=== PATIENT | female | born 1985 | race Caucasian/White ===

== ENCOUNTER → 2016-06-09 | Outpatient (CLI) | payer OTHER ==
--- NOTE | 2016-06-13 07:11 | MM ---
Reason for exam: screening (asymptomatic). Baseline mammogram. History: Patient is nulliparous. Family history of breast cancer in maternal grandmother at age 40. Physical Findings: Nurse did not find any significant physical abnormalities on exam. MG Screening Mammo w CAD Bilateral CC and MLO view(s) were taken. The breast tissue is heterogeneously dense. This may lower the sensitivity of mammography. There is no discrete abnormality. ASSESSMENT: Negative, BI-RAD 1 RECOMMENDATION: Routine screening mammogram of both breasts at age 42.
== END ==
LOC: RADMAMWWP 13:05
PROVIDERS: ATTEND Internal Medicine
DX: Z12.31 Encounter for screening mammogram for malignant neoplasm of breast (principal); Z80.3 Family history of malignant neoplasm of breast

== ENCOUNTER → 2017-06-26 | Outpatient (CLI) | payer OTHER ==
--- NOTE | 2017-06-26 21:37 | MR ---
EXAMINATION TYPE: MR brain wo con DATE OF EXAM: 06/26/2017 COMPARISON: NONE HISTORY: Cerebral cysts CONTRAST: Performed utilizing 0 mL intravenous Gadavist gadolinium contrast. TECHNIQUE: Multiplanar, multiecho imaging on a 3.0 Kenyatta magnet is performed through the brain. Stud y is performed within 24 hours of arrival to the hospital. The craniovertebral junction is normal. The pituitary is normal. Diffusion-weighted imaging is performed. No abnormal hyperintensity is present to suggest an acute i ntracranial infarct or acute ischemic change. There is an extension of the lateral ventricle into the left parietal centrum semiovale. This has smo oth borders and in the coronal plane has wide opening into the lateral ventricle compatible with vent ricular dilatation. Localized cysts not clearly identified based on these images Ventricles and sulci are otherwise appropriate for the patient age. There is a small focal area of hyperintensity within the left frontal lobe subcortical white matter n ear the skull base. This is nonspecific but could be related to some microvascular ischemic change or vasculitis. Gliosis from migraine headaches could be considered. This is not out of proportion to th e patient age. IMPRESSIONS: 1. 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 This appears more of a diverticulum. However, contrast MRI is recommended to evaluate mor e unusual etiologies which potentially could include cystic neoplasm and arachnoid cyst.
== END | disposition home or self-care (01) ==
LOC: RADMRIMAIN 16:27
PROVIDERS: ATTEND Psychiatry & Neurology Neurology
DX: R93.0 Abnormal findings on diagnostic imaging of skull and head, not elsewhere classified (principal); G93.0 Cerebral cysts
CPT/HCPCS: 70551

== ENCOUNTER 2017-07-08 09:15 | Emergency (ER) | payer OTHER ==
[2017-07-08 09:19] VITALS: RESP 18
[2017-07-08] MEDS ORDERED: ONDANSETRON 4 MG/2 ML VIAL IVP STA (10:10)
[2017-07-08] MEDS ORDERED: SODIUM CHLORIDE 0.9% 1,000 ML IV STA ×2 (10:10)
[2017-07-08] MEDS ORDERED: DICYCLOMINE 10 MG/ML 2 ML AMP IM STA (10:11)
--- NOTE | 2017-07-08 10:32 | ED ---
General Adult HPI - General Chief complaint: Nausea/Vomiting/Diarrhea Stated complaint: Vomiting Time Seen by Provider: 07/08/17 10:05 Source: patient, RN notes reviewed, old records reviewed Mode of arrival: ambulatory Limitations: no limitations - History of Present Illness Initial comments: Patient 32-year-old female who presents emergency room today with a chief complaint of symptoms of nausea vomiting diarrhea that began late last night. She does admit that she has a history of similar symptoms. States that she's been feeling well this past week. States she did eat a cheeseburger and lots of food yesterday. States began feeling nauseous beginning late last night. States she's had several bouts. Has not seen any blood in the emesis or stool. She is having loose diarrhea. Patient denies any other complaints. Patient denies any recent fever, chills, shortness of breath, chest pain, back pain, dysuria or hematuria, constipation, headaches or visual changes, or any other complaints. - Related Data Home Medications Medication Instructions Recorded Confirmed Cetirizine HCl [Zyrtec] 10 mg PO DAILY 02/16/15 07/08/17 Norethindrone-Ethinyl Estrad 1 tab PO DAILY 08/12/15 07/08/17 [Alyacen 1-35-28 Tablet] Lysine [l-Lysine] 500 mg PO DAILY 04/11/17 07/08/17 Pedi Multivit No.25/Folic Acid 300 mcg PO DAILY 04/11/17 07/08/17 [Flintstones Multivit Chew Tab] Probiotic Gummies 2 tab PO DAILY 04/11/17 07/08/17 ALPRAZolam [Xanax] 0.25 mg PO DAILY PRN 07/08/17 07/08/17 Previous Rx's Medication Instructions Recorded Ondansetron Odt [Zofran ODT] 4 mg PO Q8HR PRN #20 tab 04/11/17 Dicyclomine [Bentyl] 20 mg PO QID #20 tablet 07/08/17 Ondansetron Odt [Zofran ODT] 4 mg PO Q8HR PRN #20 tab 07/08/17 Allergies Allergy/AdvReac Type Severity Reaction Status Date / Time metoclopramide HCl AdvReac Intermediate Unknown Verified 07/08/17 10:05 [From Reglan] Review of Systems ROS Statement: Those systems with pertinent positive or pertinent negative responses have been documented in the HPI. ROS Other: All systems not noted in ROS Statement are negative. 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 History of Any Multi-Drug Resistant Organisms: None Reported Past Surgical History: Appendectomy Additional Past Surgical History / Comment(s): OVARIAN CYST SURGERY Past Anesthesia/Blood Transfusion Reactions: No Reported Reaction Past Psychological History: No Psychological Hx Reported Smoking Status: Never smoker Past Alcohol Use History: Occasional Past Drug Use History: None Reported - Past Family History Mother Family Medical History: No Reported History Father Family Medical History: No Reported History General Exam - General Exam Comments Initial Comments: General: The patient is awake and alert, in no distress, and does not appear acutely ill. Eye: Pupils are equal, round and reactive to light, extra-ocular movements are intact. No nystagmus. There is normal conjunctiva bilaterally. No signs of icterus. Ears, nose, mouth and throat: There are moist mucous membranes and no oral lesions. Neck: The neck is supple, there is no tenderness or JVD. Cardiovascular: There is a regular rate and rhythm. No murmur, rub or gallop is appreciated. Respiratory: Lungs are clear to auscultation, respirations are non-labored, breath sounds are equal. No wheezes, stridor, rales, or rhonchi. Gastrointestinal: Abdomen soft on palpation per patient does have tenderness minimal to the left and right lower quadrant. No rebound tenderness. No guarding. No CVA tenderness. Musculoskeletal: Normal ROM, no tenderness. Strength 5/5. Sensation intact. Pulses equal bilaterally 2+. Neurological: A&O x 3. CN II-XII intact, There are no obvious motor or sensory deficits. Coordination appears grossly intact. Speech is normal. Skin: Skin is warm and dry and no rashes or lesions are noted. Psychiatric: Cooperative, appropriate mood & affect, normal judgment. Limitations: no limitations Course Vital Signs 07/08/17 09:16 Pulse Rate 120 H Respiratory 18 Rate Blood Pressure 123/68 O2 Sat by Pulse 97 Oximetry Medical Decision Making - Medical Decision Making Case discussed in detail with attending physician Dr. Grimaldo. Patient reexamined at this time shows no signs of distress resting comfortably. Patient states she is feeling better here in the emergency room. Abdomen soft nontender. Labs been reviewed does show 20,000 white count. Patient was seen here March for same complaint. She did have elevated white count had a CAT scan obtained which showed colitis. Patient states she's follow-up the family doctor is also seeing GI has had both upper and lower scope performed. She states everything was okay. She states she is also seeing hematology for her elevated white cell count. Options were discussed with patient about a CT. At this time she states that the symptoms are similar to what she is expressing the past there is nothing new or different. She states feels comfortable being discharged home to follow-up the family doctor tomorrow. Patient will be given medications of [place] for her symptoms. She is advised return if any new symptoms or increase worsen his symptoms. - Lab Data Result diagrams: 07/08/17 11:14 07/08/17 11:14 Lab Results 07/08/17 07/08/17 07/08/17 Range/Units 10:33 10:33 11:14 WBC (3.8-10.6) k/uL RBC (3.80-5.40) m/uL Hgb (11.4-16.0) gm/dL Hct (34.0-46.0) % MCV (80.0-100.0) fL MCH (25.0-35.0) pg MCHC (31.0-37.0) g/dL RDW (11.5-15.5) % Plt Count (150-450) k/uL Neutrophils % (Manual) % Band Neutrophils % % Lymphocytes % (Manual) % Monocytes % (Manual) % Eosinophils % (Manual) % Neutrophils # (Manual) (1.3-7.7) k/uL Lymphocytes # (Manual) (1.0-4.8) k/uL Monocytes # (Manual) (0-1.0) k/uL Eosinophils # (Manual) (0-0.7) k/uL Nucleated RBCs (0-0) /100 WBC Polychromasia Sodium 143 (137-145) mmol/L Potassium 4.8 (3.5-5.1) mmol/L Chloride 104 (98-107) mmol/L Carbon Dioxide 19 L (22-30) mmol/L Anion Gap 20 mmol/L BUN 18 H (7-17) mg/dL Creatinine 0.97 (0.52-1.04) mg/dL Est GFR (CKD-EPI)AfAm >90 (>60 ml/min/1.73 sqM) Est GFR (CKD-EPI)NonAf 79 (>60 ml/min/1.73 sqM) Glucose 109 H (74-99) mg/dL Calcium 11.1 H (8.4-10.2) mg/dL Total Bilirubin 0.6 (0.2-1.3) mg/dL AST 34 (14-36) U/L ALT 30 (9-52) U/L Alkaline Phosphatase 65 (38-126) U/L Total Protein 9.2 H (6.3-8.2) g/dL Albumin 5.3 H (3.5-5.0) g/dL Amylase 70 (30-110) U/L Lipase 55 (23-300) U/L Urine Color Yellow Urine Appearance Cloudy H (Clear) Urine pH 5.5 (5.0-8.0) Ur Specific [place] 1.020 (1.001-1.035) Urine Protein 1+ H (Negative) Urine Glucose (UA) Negative (Negative) Urine Ketones Negative (Negative) Urine Blood Trace H (Negative) Urine Nitrite Negative (Negative) Urine Bilirubin Negative (Negative) Urine Urobilinogen <2.0 (<2.0) mg/dL Ur Leukocyte Esterase Negative (Negative) Urine RBC 1 (0-5) /hpf Urine WBC 5 (0-5) /hpf Ur Squamous Epith Cells 4 (0-4) /hpf Urine Bacteria Rare H (None) /hpf Hyaline Casts 70 H (0-2) /lpf Urine Mucus Many H (None) /hpf Urine HCG, Qual Not Detected (Not Detectd) 07/08/17 Range/Units 11:14 WBC 20.6 H (3.8-10.6) k/uL RBC 5.74 H (3.80-5.40) m/uL Hgb 17.0 H (11.4-16.0) gm/dL Hct 49.3 H (34.0-46.0) % MCV 85.8 (80.0-100.0) fL MCH 29.6 (25.0-35.0) pg MCHC 34.5 (31.0-37.0) g/dL RDW 12.4 (11.5-15.5) % Plt Count 426 (150-450) k/uL Neutrophils % (Manual) 84 % Band Neutrophils % 2 % Lymphocytes % (Manual) 6 % Monocytes % (Manual) 6 % Eosinophils % (Manual) 2 % Neutrophils # (Manual) 17.70 H (1.3-7.7) k/uL Lymphocytes # (Manual) 1.24 (1.0-4.8) k/uL Monocytes # (Manual) 1.24 H (0-1.0) k/uL Eosinophils # (Manual) 0.41 (0-0.7) k/uL Nucleated RBCs 0 (0-0) /100 WBC Polychromasia Present Sodium (137-145) mmol/L Potassium (3.5-5.1) mmol/L Chloride (98-107) mmol/L Carbon Dioxide (22-30) mmol/L Anion Gap mmol/L BUN (7-17) mg/dL Creatinine (0.52-1.04) mg/dL Est GFR (CKD-EPI)AfAm (>60 ml/min/1.73 sqM) Est GFR (CKD-EPI)NonAf (>60 ml/min/1.73 sqM) Glucose (74-99) mg/dL Calcium (8.4-10.2) mg/dL Total Bilirubin (0.2-1.3) mg/dL AST (14-36) U/L ALT (9-52) U/L Alkaline Phosphatase (38-126) U/L Total Protein (6.3-8.2) g/dL Albumin (3.5-5.0) g/dL Amylase (30-110) U/L Lipase (23-300) U/L Urine Color Urine Appearance (Clear) Urine pH (5.0-8.0) Ur Specific [place] (1.001-1.035) Urine Protein (Negative) Urine Glucose (UA) (Negative) Urine Ketones (Negative) Urine Blood (Negative) Urine Nitrite (Negative) Urine Bilirubin (Negative) Urine Urobilinogen (<2.0) mg/dL Ur Leukocyte Esterase (Negative) Urine RBC (0-5) /hpf Urine WBC (0-5) /hpf Ur Squamous Epith Cells (0-4) /hpf Urine Bacteria (None) /hpf Hyaline Casts (0-2) /lpf Urine Mucus (None) /hpf Urine HCG, Qual (Not Detectd) Disposition Clinical Impression: Abdominal pain Disposition: HOME SELF-CARE Condition: Good Instructions: Abdominal Pain (ED) Additional Instructions: Please use medication as discussed. Please follow-up with family doctor in one to 2 days. Please return to emergency room if the symptoms increase or worsen or for any other concerns. Prescriptions: Dicyclomine [Bentyl] 20 mg PO QID #20 tablet Ondansetron Odt [Zofran ODT] 4 mg PO Q8HR PRN #20 tab PRN Reason: Nausea Referrals: Carina Keita MD [Primary Care Provider] - 1-2 days Time of Disposition: 13:44
[2017-07-08 11:36] LABS: ALT 30 U/L (9-52); AST 34 U/L (14-36); Albumin 5.3 g/dL (3.5-5.0); Alkaline Phosphatase 65 U/L (38-126); Amylase 70 U/L (30-110); Anion Gap 20 mmol/L; Blood Urea Nitrogen 18 mg/dL (7-17); Calcium 11.1 mg/dL (8.4-10.2); Carbon Dioxide 19 mmol/L (22-30); Chloride 104 mmol/L (98-107); Glucose 109 mg/dL (74-99); Lipase 55 U/L (23-300); Potassium 4.8 mmol/L (3.5-5.1); Sodium 143 mmol/L (137-145); Total Bilirubin 0.6 mg/dL (0.2-1.3); Total Protein 9.2 g/dL (6.3-8.2)
[2017-07-08 11:47] LABS: HCT 49.3 % (34.0-46.0); MCH 29.6 pg (25.0-35.0); MCHC 34.5 g/dL (31.0-37.0); MCV 85.8 fL (80.0-100.0); Mean Platelet Volume 6.5; Platelet Count 426 k/uL (150-450); RBC 5.74 m/uL (3.80-5.40); RDW 12.4 % (11.5-15.5); WBC 20.6 k/uL (3.8-10.6)
[2017-07-08 12:03] LABS: Band Neutrophils % 2 %; Eosinophils # (M) 0.41 k/uL (0-0.7); Lymphocytes # (M) 1.24 k/uL (1.0-4.8); Monocytes # (M) 1.24 k/uL (0-1.0); Neutrophils % (M) 84 %; Nucleated Red Blood Cells 0 /100 WBC (0-0); Polychromasia Present; Total Cells Counted 100
--- NOTE | 2017-07-08 12:15 | XR ---
EXAMINATION TYPE: XR KUB DATE OF EXAM: 07/08/2017 12:08 PM CLINICAL HISTORY: Nausea and vomiting with abdominal pain. TECHNIQUE: Single supine image of the abdomen is obtained. COMPARISON: 03/25/2015. FINDINGS: Scattered gas is seen in non-distended small bowel loops. Gas and fecal material is seen in non-distended colon. There is no abnormal calcification appreciated. The lung bases are clear and th e osseous structures are intact. Exam is limited for pneumoperitoneum given this supine view only IMPRESSION: Nonobstructive bowel gas pattern.
[2017-07-08 13:17] LABS: Appearance,Urine Cloudy (Clear); Bacteria,Urine Rare /hpf; Bilirubin,Urine Negative (Negative); Blood,Urine Trace (Negative); Color,Urine Yellow; Glucose,Urine (UA) Negative (Negative); Hyaline Casts,Urine 70 /lpf (0-2); Ketones,Urine Negative (Negative); Leukocyte Esterase,Urine Negative (Negative); Mucus,Urine Many /hpf; Nitrite,Urine Negative (Negative); PH, Urine 5.5 (5.0-8.0); Protein,Urine 1+ (Negative); RBC,Urine 1 /hpf (0-5); Squamous Epithelial Cell,Urine 4 /hpf (0-4); Urobilinogen,Urine <2.0 mg/dL (<2.0); WBC,Urine 5 /hpf (0-5)
[2017-07-08 13:55] VITALS: BP 112/62; PULSE 89; TEMP 97.5
== END 2017-07-08 13:55 | disposition home or self-care (01) ==
LOC: EC 09:15
DX: R10.9 Unspecified abdominal pain (principal); R11.2 Nausea with vomiting, unspecified; R19.7 Diarrhea, unspecified; Z90.49 Acquired absence of other specified parts of digestive tract; Z79.899 Other long term (current) drug therapy; Z88.8 Allergy status to other drugs, medicaments and biological substances
CPT/HCPCS: 36415; 80053; 82150; 83690; 85025; 81001; 81025; 74018; 99284; 96374; 96361 ×2; 96372; J0500; J2405

== ENCOUNTER 2017-10-04 11:24 | Emergency (ER) | payer OTHER ==
[2017-10-04] MEDS ORDERED: SODIUM CHLORIDE 0.9% 2,000 ML IV STA (12:23)
[2017-10-04] MEDS ORDERED: diphenhydrAMINE 50 MG/ML 1 ML VIAL IVP STA ×2 (12:23→13:55)
[2017-10-04] MEDS ORDERED: PROMETHAZINE INJ 25 MG in SODIUM CHLORIDE 0.9% 50 ML IVPB STA (12:24)
[2017-10-04 12:54] LABS: Basophils # (A) 0.1 k/uL (0-0.2); Basophils % (A) 0 %; Eosinophils # (A) 0.1 k/uL (0-0.7); Eosinophils % (A) 0 %; HCT 46.2 % (34.0-46.0); Lymphocytes # (A) 0.8 k/uL (1.0-4.8); Lymphocytes % (A) 4 %; MCH 30.6 pg (25.0-35.0); MCHC 34.6 g/dL (31.0-37.0); MCV 88.5 fL (80.0-100.0); Mean Platelet Volume 7.1; Monocytes # (A) 0.6 k/uL (0-1.0); Monocytes % (A) 3 %; Neutrophils # (A) 19.9 k/uL (1.3-7.7); Neutrophils % (A) 92 %; Platelet Count 440 k/uL (150-450); RBC 5.22 m/uL (3.80-5.40); RDW 13.5 % (11.5-15.5); WBC 21.6 k/uL (3.8-10.6)
[2017-10-04 13:05] LABS: ALT 32 U/L (9-52); AST 29 U/L (14-36); Albumin 5.2 g/dL (3.5-5.0); Alkaline Phosphatase 50 U/L (38-126); Amylase 54 U/L (30-110); Anion Gap 22 mmol/L; Blood Urea Nitrogen 17 mg/dL (7-17); Calcium 10.4 mg/dL (8.4-10.2); Carbon Dioxide 16 mmol/L (22-30); Chloride 104 mmol/L (98-107); Glucose 122 mg/dL (74-99); Lipase 19 U/L (23-300); Potassium 5.3 mmol/L (3.5-5.1); Sodium 142 mmol/L (137-145); Total Bilirubin 0.8 mg/dL (0.2-1.3); Total Protein 8.5 g/dL (6.3-8.2)
--- NOTE | 2017-10-04 13:16 | ED ---
Nausea/Vomiting/Diarrhea HPI - General Chief complaint: Nausea/Vomiting/Diarrhea Stated complaint: NVD Time Seen by Provider: 10/04/17 12:09 Source: patient, RN notes reviewed Mode of arrival: ambulatory Limitations: no limitations - History of Present Illness Initial comments: This is a 32-year-old female presents emergency Department with chief complaint of nausea vomiting diarrhea. Patient states his symptoms started this morning. Patient states that she has is ongoing cycle of symptoms. She states that he has been evaluated several times has seen GI has had complete workup with no answers. She states that she normally develops severe nausea vomiting diarrhea along with leukocytosis. She states is normally in the 20-30,000. Patient reports no fever no chills. Patient states that she tried Zofran at home along with Bentyl with no improvement. Patient denies any dysuria, hematuria, melena , hematochezia or hematemesis or coffee-ground emesis. - Related Data Home Medications Medication Instructions Recorded Confirmed Cetirizine HCl [Zyrtec] 10 mg PO DAILY 02/16/15 10/04/17 Norethindrone-Ethinyl Estrad 1 tab PO DAILY 08/12/15 10/04/17 [Alyacen 1-35-28 Tablet] Lysine [l-Lysine] 500 mg PO DAILY 04/11/17 10/04/17 Pedi Multivit No.25/Folic Acid 300 mcg PO DAILY 04/11/17 10/04/17 [Flintstones Multivit Chew Tab] Probiotic Gummies 2 tab PO DAILY 04/11/17 10/04/17 ALPRAZolam [Xanax] 0.125 mg PO DAILY PRN 07/08/17 10/04/17 valACYclovir [Valtrex] 500 mg PO DAILY 10/04/17 10/04/17 Previous Rx's Medication Instructions Recorded Dicyclomine [Bentyl] 20 mg PO QID #20 tablet 07/08/17 Ondansetron Odt [Zofran ODT] 4 mg PO Q8HR PRN #20 tab 07/08/17 Promethazine Suppository 25 mg RECTAL QID #20 supp 10/04/17 [Phenergan] Allergies Allergy/AdvReac Type Severity Reaction Status Date / Time metoclopramide HCl AdvReac Intermediate Unknown Verified 10/04/17 12:05 [From Reglan] Review of Systems ROS Statement: Those systems with pertinent positive or pertinent negative responses have been documented in the HPI. ROS Other: All systems not noted in ROS Statement are negative. 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 History of Any Multi-Drug Resistant Organisms: None Reported Past Surgical History: Appendectomy Additional Past Surgical History / Comment(s): OVARIAN CYST SURGERY Past Anesthesia/Blood Transfusion Reactions: No Reported Reaction Past Psychological History: No Psychological Hx Reported Smoking Status: Never smoker Past Alcohol Use History: Occasional Past Drug Use History: None Reported - Past Family History Mother Family Medical History: No Reported History Father Family Medical History: No Reported History General Exam Limitations: no limitations General appearance: alert, in no apparent distress Head exam: Present: atraumatic, normocephalic, normal inspection ENT exam: Present: normal exam, normal oropharynx, mucous membranes moist Neck exam: Present: normal inspection, full ROM. Absent: tenderness, meningismus, lymphadenopathy Respiratory exam: Present: normal lung sounds bilaterally. Absent: respiratory distress, wheezes, rales, rhonchi, stridor Cardiovascular Exam: Present: regular rate, normal rhythm, normal heart sounds. Absent: systolic murmur, diastolic murmur, rubs, gallop, clicks GI/Abdominal exam: Present: soft, tenderness (mild diffuse), normal bowel sounds. Absent: distended, guarding, rebound, rigid Neurological exam: Present: alert, oriented X3, CN II-XII intact Skin exam: Present: warm, dry, intact, normal color. Absent: rash Course Vital Signs 10/04/17 10/04/17 11:36 13:55 Temperature 97.6 F Pulse Rate 72 72 Respiratory 16 18 Rate Blood Pressure 125/83 140/77 O2 Sat by Pulse 99 98 Oximetry Medical Decision Making - Medical Decision Making 32-year-old female presents from for nausea vomiting diarrhea. Patient has had this recurrent issue and has been evaluated extensively by GI multiple physicians. Patient has had CT in the past which showed no major abnormality so than drinks type changes. Patient was offered further evaluation though she states she feels better and requests discharge at this time. Patient will be discharged with Phenergan suppository and will follow-up with her PCP. - Lab Data Result diagrams: 10/04/17 12:37 10/04/17 12:37 Lab Results 10/04/17 10/04/17 10/04/17 Range/Units 12:37 12:37 13:49 WBC 21.6 H (3.8-10.6) k/uL RBC 5.22 (3.80-5.40) m/uL Hgb 16.0 (11.4-16.0) gm/dL Hct 46.2 H (34.0-46.0) % MCV 88.5 (80.0-100.0) fL MCH 30.6 (25.0-35.0) pg MCHC 34.6 (31.0-37.0) g/dL RDW 13.5 (11.5-15.5) % Plt Count 440 (150-450) k/uL Neutrophils % 92 % Lymphocytes % 4 % Monocytes % 3 % Eosinophils % 0 % Basophils % 0 % Neutrophils # 19.9 H (1.3-7.7) k/uL Lymphocytes # 0.8 L (1.0-4.8) k/uL Monocytes # 0.6 (0-1.0) k/uL Eosinophils # 0.1 (0-0.7) k/uL Basophils # 0.1 (0-0.2) k/uL Sodium 142 (137-145) mmol/L Potassium 5.3 H (3.5-5.1) mmol/L Chloride 104 (98-107) mmol/L Carbon Dioxide 16 L (22-30) mmol/L Anion Gap 22 mmol/L BUN 17 (7-17) mg/dL Creatinine 0.70 (0.52-1.04) mg/dL Est GFR (CKD-EPI)AfAm >90 (>60 ml/min/1.73 sqM) Est GFR (CKD-EPI)NonAf >90 (>60 ml/min/1.73 sqM) Glucose 122 H (74-99) mg/dL Calcium 10.4 H (8.4-10.2) mg/dL Total Bilirubin 0.8 (0.2-1.3) mg/dL AST 29 (14-36) U/L ALT 32 (9-52) U/L Alkaline Phosphatase 50 (38-126) U/L Total Protein 8.5 H (6.3-8.2) g/dL Albumin 5.2 H (3.5-5.0) g/dL Amylase 54 (30-110) U/L Lipase 19 L (23-300) U/L Urine Color Yellow Urine Appearance Clear (Clear) Urine pH 5.5 (5.0-8.0) Ur Specific [place] 1.015 (1.001-1.035) Urine Protein Negative (Negative) Urine Glucose (UA) Negative (Negative) Urine Ketones 1+ H (Negative) Urine Blood Negative (Negative) Urine Nitrite Negative (Negative) Urine Bilirubin Negative (Negative) Urine Urobilinogen <2.0 (<2.0) mg/dL Ur Leukocyte Esterase Negative (Negative) Disposition Clinical Impression: Nausea & vomiting, Abdominal pain Disposition: HOME SELF-CARE Condition: Stable Instructions: Acute Nausea and Vomiting (ED) Additional Instructions: Please return to the Emergency Department if symptoms worsen or any other concerns. Prescriptions: Promethazine Suppository [Phenergan] 25 mg RECTAL QID #20 supp Is patient prescribed a controlled substance at d/c from ED?: No Referrals: Carina Keita MD [Primary Care Provider] - 1-2 days Time of Disposition: 14:44
[2017-10-04] MEDS ORDERED: ONDANSETRON 4 MG/2 ML VIAL IVP STA (13:55)
[2017-10-04 14:09] LABS: Appearance,Urine Clear (Clear); Bilirubin,Urine Negative (Negative); Blood,Urine Negative (Negative); Color,Urine Yellow; Glucose,Urine (UA) Negative (Negative); Ketones,Urine 1+ (Negative); Leukocyte Esterase,Urine Negative (Negative); Nitrite,Urine Negative (Negative); PH, Urine 5.5 (5.0-8.0); Protein,Urine Negative (Negative); Specific Gravity,Urine 1.015 (1.001-1.035); Urobilinogen,Urine <2.0 mg/dL (<2.0)
[2017-10-04] MEDS ORDERED: SODIUM CHLORIDE 0.9% 1,000 ML IV ONE (14:11)
[2017-10-04 15:14] VITALS: BP 129/59; PULSE 86; RESP 16; TEMP 99.2
== END 2017-10-04 15:43 | disposition home or self-care (01) ==
LOC: EC 11:24
DX: R11.2 Nausea with vomiting, unspecified (principal); R10.9 Unspecified abdominal pain; R19.7 Diarrhea, unspecified; Z90.49 Acquired absence of other specified parts of digestive tract; Z79.3 Long term (current) use of hormonal contraceptives; Z79.899 Other long term (current) drug therapy; Z88.8 Allergy status to other drugs, medicaments and biological substances
CPT/HCPCS: 36415; 80053; 82150; 83690; 85025; 81003; 99284; 96365; 96375 ×2; 96376; 96361 ×2; J1200; J2550; J2405

== ENCOUNTER 2020-08-30 16:57 | Observation (INO) | payer OTHER ==
[2020-08-30] MEDS ORDERED: MORPHINE SULFATE 4 MG/ML SYRINGE IV STA (19:11)
[2020-08-30] MEDS ORDERED: SODIUM CHLORIDE 0.9% 500 ML 500 ML IV STA (19:11)
[2020-08-30] MEDS ORDERED: SODIUM CHLORIDE 0.9% 1,000 ML IV STA (19:11)
[2020-08-30] MEDS ORDERED: ONDANSETRON 4 MG/2 ML VIAL IVP STA (19:12)
--- NOTE | 2020-08-30 19:35 | ED ---
Nausea/Vomiting/Diarrhea HPI - General Chief complaint: Nausea/Vomiting/Diarrhea Stated complaint: throwing up Time Seen by Provider: 08/30/20 19:01 Source: patient Mode of arrival: wheelchair Limitations: no limitations - History of Present Illness Initial comments: 35 year-old female patient presents for evaluation of abdominal pain and vomiting since 09 this morning. States pain is generalized. Denies radiation through to her back. Patient denies any fever or chills. Denies diarrhea or constipation. States she has had symptoms like this in the past but states it has been a while. She denies any hematemesis, hematochezia, or melena. States she has been drinking heavier lately due to stress in her life. Denies any street drug use. Has had abdominal surgeries in the past including appendectomy and ovarian cyst surgery. She is unsure if she may be . Denies any abnormal vaginal bleeding or discharge. Denies concern for STI. Does take control which stops her periods. Patient denies any recent rash, cough, shortness of breath, chest pain, back pain, numbness, tingling, dizziness, weakness, hematuria, dysuria, urinary urgency, urinary frequency, headache, visual changes, or any other complaints. - Related Data Home Medications Medication Instructions Recorded Confirmed Cetirizine HCl [Zyrtec] 10 mg PO DAILY 02/16/15 08/30/20 Lysine [l-Lysine] 500 mg PO DAILY 04/11/17 08/30/20 Ergocalciferol (Vitamin D2) 50 mg PO DAILY 08/30/20 08/30/20 [Vitamin D2 (2000 Iu)] Norethindrone-E.estradiol-Iron 1 tab PO DAILY 08/30/20 08/30/20 [Junel Fe 1 mg-20 Mcg Tablet] Ondansetron Odt [Zofran ODT] 4 mg PO Q8H PRN 08/30/20 08/30/20 Allergies Allergy/AdvReac Type Severity Reaction Status Date / Time metoclopramide HCl AdvReac Intermediate Unknown Verified 08/30/20 21:30 [From [facility]] Review of Systems ROS Statement: Those systems with pertinent positive or pertinent negative responses have been documented in the HPI. ROS Other: All systems not noted in ROS Statement are negative. 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 History of Any Multi-Drug Resistant Organisms: None Reported Past Surgical History: Appendectomy Additional Past Surgical History / Comment(s): OVARIAN CYST SURGERY Past Anesthesia/Blood Transfusion Reactions: No Reported Reaction Past Psychological History: No Psychological Hx Reported Smoking Status: Never smoker Past Alcohol Use History: Occasional Past Drug Use History: None Reported - Past Family History Mother Family Medical History: No Reported History Father Family Medical History: No Reported History General Exam Limitations: no limitations General appearance: alert, in no apparent distress, other (Physical well- developed, well-nourished adult female patient in mild distress related to pain. Vital signs upon presentation are temperature 98.7F, pulse 74, respirations 16, blood pressure 129/74, pulse ox 97% on room air.) Eye exam: Present: normal appearance, PERRL, EOMI. Absent: scleral icterus, conjunctival injection, periorbital swelling ENT exam: Present: normal exam, normal oropharynx, mucous membranes moist Respiratory exam: Present: normal lung sounds bilaterally. Absent: respiratory distress, wheezes, rales, rhonchi, stridor Cardiovascular Exam: Present: regular rate, normal rhythm, normal heart sounds. Absent: systolic murmur, diastolic murmur, rubs, gallop, clicks GI/Abdominal exam: Present: soft, tenderness (generalized), normal bowel sounds. Absent: distended, guarding, rebound, rigid Neurological exam: Present: alert, oriented X3, CN II-XII intact Psychiatric exam: Present: normal affect, normal mood Skin exam: Present: warm, dry, intact, normal color. Absent: rash Course Vital Signs 08/30/20 08/30/20 16:58 20:18 Temperature 98.7 F Pulse Rate 74 85 Respiratory 16 18 Rate Blood Pressure 129/74 126/72 O2 Sat by Pulse 97 99 Oximetry - Reevaluation(s) Reevaluation #1: 08/30/20 21:19 Sepsis diagnosed at 2118. Abx ordered. IV fluids infusing. Medical Decision Making - Medical Decision Making 35 year-old female patient with history of ovarian cysts, s/p appendectomy in 2 015, who is A1 with history of elective , currently taking oral control presents to the emergency department for evaluation of generalized abdominal pain and vomiting since 0930 this morning. Denies known fever. Physical exam revealed generalized abdominal tenderness. V/S within normal ranges. Labs revealed elevated wbc count at 19.9, lactic acid 5.2. She was given 1500ml normal saline bolus, started at 130ml/hour. CT abdomen pelvis ordered and showed 5cm abscess to the right lower quadrant with differentials including appendicitis or tubo-ovarian abscess. Patient had appendectomy in 2014. Unasyn and Doxycycline ordered to cover for TOA. I did re-evaluate patient and discus sed findings with her. She is much more comfortable after receiving pain medication and zofran. Patient OBGYN Dr. Conn [facility]. She denies concern for STI, denies recent pelvic pain or vaginal discharge. States she did have a small ovarian cyst at her last PRACTICE SPECIALIST visit. Has a monogamous relationship of 2 years. Patient requests to remain at this facility. Dr. Funk OBGYN contacted and recommends admission with IV antibiotics. Admission to general medicine for possibility of non abscess, also consult general surgery. Patient is agreeable. Case discussed with my attending Dr. Mayfield. - Lab Data Result diagrams: 08/30/20 19:19 08/30/20 19:19 Lab Results 08/30/20 08/30/20 08/30/20 Range/Units 19:19 19:19 19:19 WBC 19.9 H (3.8-10.6) k/uL RBC 4.74 (3.80-5.40) m/uL Hgb 14.1 (11.4-16.0) gm/dL Hct 41.0 (34.0-46.0) % MCV 86.5 (80.0-100.0) fL MCH 29.8 (25.0-35.0) pg MCHC 34.5 (31.0-37.0) g/dL RDW 12.7 (11.5-15.5) % Plt Count 390 (150-450) k/uL MPV 7.2 Neutrophils % 91 % Lymphocytes % 5 % Monocytes % 2 % Eosinophils % 1 % Basophils % 0 % Neutrophils # 18.2 H (1.3-7.7) k/uL Lymphocytes # 1.0 (1.0-4.8) k/uL Monocytes # 0.5 (0-1.0) k/uL Eosinophils # 0.2 (0-0.7) k/uL Basophils # 0.1 (0-0.2) k/uL Sodium 138 (137-145) mmol/L Potassium 4.4 (3.5-5.1) mmol/L Chloride 101 (98-107) mmol/L Carbon Dioxide 19 L (22-30) mmol/L Anion Gap 18 mmol/L BUN 13 (7-17) mg/dL Creatinine 0.58 (0.52-1.04) mg/dL Est GFR (CKD-EPI)AfAm >90 (>60 ml/min/1.73 sqM) Est GFR (CKD-EPI)NonAf >90 (>60 ml/min/1.73 sqM) Glucose 119 H (74-99) mg/dL Lactic Ac Sepsis Rflx Plasma Lactic Acid Jonah (0.7-2.0) mmol/L Calcium 10.3 H (8.4-10.2) mg/dL Total Bilirubin 0.6 (0.2-1.3) mg/dL AST 36 (14-36) U/L ALT 21 (4-34) U/L Alkaline Phosphatase 51 (38-126) U/L Total Protein 8.5 H (6.3-8.2) g/dL Albumin 5.1 H (3.5-5.0) g/dL Lipase 16 L (23-300) U/L Urine Color Urine Appearance (Clear) Urine pH (5.0-8.0) Ur Specific [place] (1.001-1.035) Urine Protein (Negative) Urine Glucose (UA) (Negative) Urine Ketones (Negative) Urine Blood (Negative) Urine Nitrite (Negative) Urine Bilirubin (Negative) Urine Urobilinogen (<2.0) mg/dL Ur Leukocyte Esterase (Negative) Urine RBC (0-5) /hpf Urine WBC (0-5) /hpf Ur Squamous Epith Cells (0-4) /hpf Hyaline Casts (0-2) /lpf Urine Mucus (None) /hpf Urine HCG, Qual Not Detected (Not Detectd) 08/30/20 08/30/20 08/30/20 Range/Units 19:19 19:36 19:52 WBC (3.8-10.6) k/uL RBC (3.80-5.40) m/uL Hgb (11.4-16.0) gm/dL Hct (34.0-46.0) % MCV (80.0-100.0) fL MCH (25.0-35.0) pg MCHC (31.0-37.0) g/dL RDW (11.5-15.5) % Plt Count (150-450) k/uL MPV Neutrophils % % Lymphocytes % % Monocytes % % Eosinophils % % Basophils % % Neutrophils # (1.3-7.7) k/uL Lymphocytes # (1.0-4.8) k/uL Monocytes # (0-1.0) k/uL Eosinophils # (0-0.7) k/uL Basophils # (0-0.2) k/uL Sodium (137-145) mmol/L Potassium (3.5-5.1) mmol/L Chloride (98-107) mmol/L Carbon Dioxide (22-30) mmol/L Anion Gap mmol/L BUN (7-17) mg/dL Creatinine (0.52-1.04) mg/dL Est GFR (CKD-EPI)AfAm (>60 ml/min/1.73 sqM) Est GFR (CKD-EPI)NonAf (>60 ml/min/1.73 sqM) Glucose (74-99) mg/dL Lactic Ac Sepsis Rflx Y Plasma Lactic Acid Jonah 5.2 H* (0.7-2.0) mmol/L Calcium (8.4-10.2) mg/dL Total Bilirubin (0.2-1.3) mg/dL AST (14-36) U/L ALT (4-34) U/L Alkaline Phosphatase (38-126) U/L Total Protein (6.3-8.2) g/dL Albumin (3.5-5.0) g/dL Lipase (23-300) U/L Urine Color Yellow Urine Appearance Clear (Clear) Urine pH 5.5 (5.0-8.0) Ur Specific [place] 1.029 (1.001-1.035) Urine Protein 1+ H (Negative) Urine Glucose (UA) Negative (Negative) Urine Ketones 1+ H (Negative) Urine Blood Small H (Negative) Urine Nitrite Negative (Negative) Urine Bilirubin Negative (Negative) Urine Urobilinogen <2.0 (<2.0) mg/dL Ur Leukocyte Esterase Negative (Negative) Urine RBC 1 (0-5) /hpf Urine WBC 1 (0-5) /hpf Ur Squamous Epith Cells 2 (0-4) /hpf Hyaline Casts 1 (0-2) /lpf Urine Mucus Moderate H (None) /hpf Urine HCG, Qual (Not Detectd) - Radiology Data Radiology results: report reviewed, image reviewed CT abdomen and pelvis with contrast was obtained report reviewed in its entirety. Impression by Dr. Gann shows abscess noted to right lower quadrant adjacent to the region of the right adnexa measuring 5.9 x 4.2 cm. This may be secondary to acute appendicitis and most likely tubo-ovarian abscess. Correlate clinically. Disposition Clinical Impression: Intra-abdominal abscess Disposition: ADMITTED IP TO THIS [facility] Condition: Serious Referrals: None,Stated [Primary Care Provider] - 1-2 days Decision to Admit Reason: Admit from EC Decision Date: 08/30/20 Decision Time: 22:17
[2020-08-30 19:41] LABS: Basophils # (A) 0.1 k/uL (0-0.2); Basophils % (A) 0 %; Eosinophils # (A) 0.2 k/uL (0-0.7); Eosinophils % (A) 1 %; HGB 14.1 gm/dL (11.4-16.0); Lymphocytes % (A) 5 %; MCH 29.8 pg (25.0-35.0); MCHC 34.5 g/dL (31.0-37.0); MCV 86.5 fL (80.0-100.0); Mean Platelet Volume 7.2; Monocytes # (A) 0.5 k/uL (0-1.0); Monocytes % (A) 2 %; Neutrophils # (A) 18.2 k/uL (1.3-7.7); Neutrophils % (A) 91 %; Platelet Count 390 k/uL (150-450); RBC 4.74 m/uL (3.80-5.40); RDW 12.7 % (11.5-15.5); WBC 19.9 k/uL (3.8-10.6)
[2020-08-30 19:49] LABS: AST 36 U/L (14-36); African American GFR (CKD) >90 (>60 ml/min/1.73 sqM); Albumin 5.1 g/dL (3.5-5.0); Alkaline Phosphatase 51 U/L (38-126); Anion Gap 18 mmol/L; Blood Urea Nitrogen 13 mg/dL (7-17); Calcium 10.3 mg/dL (8.4-10.2); Carbon Dioxide 19 mmol/L (22-30); Chloride 101 mmol/L (98-107); Glucose 119 mg/dL (74-99); Lipase 16 U/L (23-300); Non-African American GFR(CKD) >90 (>60 ml/min/1.73 sqM); Potassium 4.4 mmol/L (3.5-5.1); Sodium 138 mmol/L (137-145); Total Bilirubin 0.6 mg/dL (0.2-1.3); Total Protein 8.5 g/dL (6.3-8.2)
[2020-08-30 19:56] LABS: ALT 21 U/L (4-34)
[2020-08-30 20:01] LABS: Appearance,Urine Clear (Clear); Bilirubin,Urine Negative (Negative); Blood,Urine Small (Negative); Color,Urine Yellow; Glucose,Urine (UA) Negative (Negative); Hyaline Casts,Urine 1 /lpf (0-2); Ketones,Urine 1+ (Negative); Leukocyte Esterase,Urine Negative (Negative); Mucus,Urine Moderate /hpf; Nitrite,Urine Negative (Negative); PH, Urine 5.5 (5.0-8.0); Protein,Urine 1+ (Negative); RBC,Urine 1 /hpf (0-5); Specific Gravity,Urine 1.029 (1.001-1.035); Squamous Epithelial Cell,Urine 2 /hpf (0-4); Urobilinogen,Urine <2.0 mg/dL (<2.0); WBC,Urine 1 /hpf (0-5)
--- NOTE | 2020-08-30 21:10 | CT ---
EXAMINATION TYPE: CT abdomen pelvis w con DATE OF EXAM: 08/30/2020 COMPARISON: 04/11/2017 HISTORY: Abdominal pain with vomiting CT DLP: 725.6 mGycm CONTRAST: CT scan of the abdomen and pelvis is performed without Oral Contrast and with IV Contrast, patient in jected with 100 mL of Isovue 300. FINDINGS: LUNG BASES-: No visible nodule. No infiltrate. LIVER/GB: No calcified gallstones. No space occupying hepatic lesion. Biliary tree is of normal ca liber. PANCREAS: No inflammation. No distinct mass. SPLEEN: No splenic enlargement. No lesion seen. ADRENALS: No nodule. No thickening. KIDNEYS/BLADDER: No hydronephrosis. No nephrolithiasis. No distinct renal mass. Urinary bladder g rossly unremarkable. BOWEL: There is an abscess noted right lower quadrant adjacent to the region of the right adnexa car uring 5.9 x 4.2 cm. This may be secondary to acute appendicitis and less likely tubo-ovarian abscess. Correlate clinically. GENITAL ORGANS: See above. Bicornuate uterus. Uterine leiomyoma. LYMPH NODES: No greater than 1cm abdominal or pelvic lymph nodes are appreciated. AORTA: No significant abnormality. OSSEOUS STRUCTURES: No significant abnormality is seen. OTHER: No significant additional abnormality is seen. IMPRESSION: 1. There is an abscess noted right lower quadrant adjacent to the region of the right adnexa measurin g 5.9 x 4.2 cm. This may be secondary to acute appendicitis and less likely tubo-ovarian abscess. Cor relate clinically.
[2020-08-30] MEDS ORDERED: DOXYCYCLINE 100 MG in SODIUM CHLORIDE 0.9% 100 ML IVPB ONE (21:18)
[2020-08-30] MEDS ORDERED: AMPICILLIN-SULBACTAM 3 GM in SODIUM CHLORIDE 0.9% 100 ML IVPB STA (21:18)
[2020-08-30] MEDS ORDERED: ONDANSETRON 4 MG/2 ML VIAL IVP PRN (22:11)
[2020-08-30] MEDS ORDERED: NALOXONE 0.4 MG/ML 1 ML VIAL IV PRN (22:11)
[2020-08-30] MEDS: SODIUM CHLORIDE 0.9% 1,000 ML IV SCH (23:30)
[2020-08-31] MEDS: MORPHINE SULFATE 4 MG/ML SYRINGE IV PRN ×5 (00:56→22:27)
[2020-08-31] MEDS: SODIUM CHLORIDE 0.9% 1,000 ML IV SCH ×3 (00:57→22:29)
[2020-08-31] MEDS: AMPICILLIN-SULBACTAM 3 GM in SODIUM CHLORIDE 0.9% 100 ML IVPB SCH ×4 (04:32→22:29)
--- NOTE | 2020-08-31 07:01 | P.OBCN ---
History of Present Illness Consult date: 08/31/20 Reason for consult: pelvic pain Chief complaint: Nausea, vomiting, and abdominal pain History of present illness: This patient is a pleasant 35-year-old 0 para 0 female who presented to the emergency department yesterday afternoon with complaints of fairly sudden onset of right lower quadrant abdominal pain associated with nausea and vomiting. Patient's past gynecologic history is significant for multiple ov fernanda cysts one of which was removed by Dr. Rubalcava in 2014. Patient states that she is now seeing Dr. Conn at [facility] for her epidemiologist and saw her approximately a month ago. She states that she is being evaluated for amenorrhea on the control pill but states that her test of all been normal. She indicated that she's had intermittent ovarian cysts but that her epidemiologist was not concerned because there were very small. Patient's history is also significant for acute appendicitis in 2015 for which she had her appendix removed by Dr. Yin. Interestingly at the time, the patient's pathology did not show evidence of appendicitis. 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 Patient developed significant nausea and vomiting yesterday and lower abdominal pain. She went to the emergency department and a CAT scan showed a 5.9 x 4.2 cm area in the right adnexa that was felt to be an abscess. The radiologist was reading this as likely bowel related less likely tubo-ovarian abscess. Patient's been in a monogamous relationship for approximately 2 years. She denies infidelity, vaginal discharge, or recent STDs. She denies fever or chills. She's been on the control pill and is amenorrheic on this pill. Unfortunately no gynecologic cultures were done in the emergency department and patient's already on IV antibiotics. 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 History of Any Multi-Drug Resistant Organisms: None Reported Past Surgical History: Appendectomy Additional Past Surgical History / Comment(s): OVARIAN CYST SURGERY Past Anesthesia/Blood Transfusion Reactions: No Reported Reaction Past Psychological History: No Psychological Hx Reported Additional Psychological History / Comment(s): undiagnosed anxiety Smoking Status: Never smoker Past Alcohol Use History: Occasional Past Drug Use History: None Reported - Past Family History Mother Family Medical History: No Reported History Father Family Medical History: No Reported History Medications and Allergies Home Medications Medication Instructions Recorded Confirmed Type Cetirizine HCl [Zyrtec] 10 mg PO DAILY 02/16/15 08/30/20 History Lysine [l-Lysine] 500 mg PO DAILY 04/11/17 08/30/20 History Ergocalciferol (Vitamin D2) 50 mg PO DAILY 08/30/20 08/30/20 History [Vitamin D2 (2000 Iu)] Norethindrone-E.estradiol-Iron 1 tab PO DAILY 08/30/20 08/30/20 History [Junel Fe 1 mg-20 Mcg Tablet] Ondansetron Odt [Zofran ODT] 4 mg PO Q8H PRN 08/30/20 08/30/20 History Allergies Allergy/AdvReac Type Severity Reaction Status Date / Time metoclopramide HCl AdvReac Intermediate Unknown Verified 08/30/20 21:30 [From [facility]] Exam Vital Signs Temp Pulse Pulse Resp BP BP Pulse Ox 08/31/20 05:33 98.3 F 76 121/71 97 08/31/20 01:52 98.1 F 86 18 119/71 95 08/30/20 22:33 98.0 F 99 18 116/63 97 08/30/20 20:18 85 18 126/72 99 08/30/20 16:58 98.7 F 74 16 129/74 97 Intake and Output 08/30/20 08/30/20 08/31/20 14:59 22:59 06:59 Other: # Voids 1 Weight 72.575 kg 72.575 kg - OBG Physical Exam Abdomen: bowel sounds normal (Exam of this patient's abdomen shows no significant tenderness, no guarding, no rebound.), no diffuse tenderness, no bruit present, no guarding noted, no hepatomegaly, no splenomegaly, no mass Results Result Diagrams: 08/30/20 19:19 08/30/20 19:19 Abnormal Lab Results - Last 24 Hours (Table) 08/30/20 08/30/20 08/30/20 Range/Units 19:19 19:19 19:19 WBC 19.9 H (3.8-10.6) k/uL Neutrophils # 18.2 H (1.3-7.7) k/uL Carbon Dioxide 19 L (22-30) mmol/L Glucose 119 H (74-99) mg/dL Plasma Lactic Acid Jonah 5.2 H* (0.7-2.0) mmol/L Calcium 10.3 H (8.4-10.2) mg/dL Total Protein 8.5 H (6.3-8.2) g/dL Albumin 5.1 H (3.5-5.0) g/dL Lipase 16 L (23-300) U/L Urine Protein (Negative) Urine Ketones (Negative) Urine Blood (Negative) Urine Mucus (None) /hpf SARS-CoV-2 (PCR) (Not Detectd) 08/30/20 08/30/20 08/30/20 Range/Units 19:36 21:58 22:12 WBC (3.8-10.6) k/uL Neutrophils # (1.3-7.7) k/uL Carbon Dioxide (22-30) mmol/L Glucose (74-99) mg/dL Plasma Lactic Acid Jonah 3.3 H* (0.7-2.0) mmol/L Calcium (8.4-10.2) mg/dL Total Protein (6.3-8.2) g/dL Albumin (3.5-5.0) g/dL Lipase (23-300) U/L Urine Protein 1+ H (Negative) Urine Ketones 1+ H (Negative) Urine Blood Small H (Negative) Urine Mucus Moderate H (None) /hpf SARS-CoV-2 (PCR) Detected A (Not Detectd) 08/31/20 Range/Units 01:37 WBC (3.8-10.6) k/uL Neutrophils # (1.3-7.7) k/uL Carbon Dioxide (22-30) mmol/L Glucose (74-99) mg/dL Plasma Lactic Acid Jonah 3.0 H* (0.7-2.0) mmol/L Calcium (8.4-10.2) mg/dL Total Protein (6.3-8.2) g/dL Albumin (3.5-5.0) g/dL Lipase (23-300) U/L Urine Protein (Negative) Urine Ketones (Negative) Urine Blood (Negative) Urine Mucus (None) /hpf SARS-CoV-2 (PCR) (Not Detectd) Assessment and Plan Assessment: This is a pleasant 35-year-old 0 para 0 female admitted with lower abdominal pain, nausea and vomiting. White blood cell count on admission is 19.9 however she is afebrile. Imaging by CAT scan is suggestive of an abscess possibly in the right adnexa versus bowel related. Patient does not have any significant risk factors for pelvic inflammatory disease or TOA (she is monogamous on the control pill). Interestingly she had an elevated white count in the past and thought to have appendicitis and at that time her appendix was removed and did not show acute appendicitis. Unfortunately pelvic cultures were not done prior to starting antibiotics. My recommendations are to continue IV Unasyn and doxycycline, I am going to also order a vaginal ultrasound to perhaps better visualize the pelvic organs, do serial CBCs, and advise consultation with general surgery. At this point her examination shows marked improvement. If she responds well to IV antibiotics then most likely would discharge home on oral course of antibiotics and follow-up with her primary [facility] for repeat imaging in approximately 6 weeks. I will continue to follow with you during this hospitalization. (1) Pelvic pain Current Visit: Yes Status: Acute Code(s): R10.2 - PELVIC AND PERINEAL PAIN SNOMED Code(s): 28612740 (2) Intra-abdominal abscess Current Visit: Yes Status: Acute Code(s): K65.1 - PERITONEAL ABSCESS SNOMED Code(s): 18115945
[2020-08-31 07:20] LABS: Basophils # (A) 0.1 k/uL (0-0.2); Basophils % (A) 1 %; Eosinophils # (A) 0.1 k/uL (0-0.7); Eosinophils % (A) 1 %; HCT 36.1 % (34.0-46.0); HGB 11.8 gm/dL (11.4-16.0); Lymphocytes # (A) 2.1 k/uL (1.0-4.8); Lymphocytes % (A) 17 %; MCHC 32.7 g/dL (31.0-37.0); MCV 88.7 fL (80.0-100.0); Mean Platelet Volume 7.2; Monocytes # (A) 0.7 k/uL (0-1.0); Monocytes % (A) 6 %; Neutrophils # (A) 9.1 k/uL (1.3-7.7); Neutrophils % (A) 74 %; Platelet Count 331 k/uL (150-450); RBC 4.07 m/uL (3.80-5.40); RDW 13.5 % (11.5-15.5); WBC 12.2 k/uL (3.8-10.6)
[2020-08-31] MEDS ORDERED: ONDANSETRON ODT 4 MG TAB PO PRN (08:17)
[2020-08-31] MEDS: LORATADINE 10 MG TAB PO SCH (08:44)
[2020-08-31] MEDS: CHOLECALCIFEROL 25 MCG (1000 IU) TABLET PO SCH (08:44)
--- NOTE | 2020-08-31 08:51 | US ---
EXAMINATION TYPE: US transvaginal DATE OF EXAM: 08/31/2020 COMPARISON: CT 08/30/2020 CLINICAL HISTORY: Pelvic abscess. Pelvic pain, abnormal CT TECHNIQUE: Transvaginal (TV). Transvaginal sonographic images of the pelvis were acquired. Date of LMP: pt unsure, sometime in 2019 EXAM MEASUREMENTS: Uterus: 6.5 x 3.4 x 5.4 cm Endometrial Stripe: Possible right and left horns, right= 0.3 cm and left= 0.4 cm Right Ovary: 3.2 x 2.3 x 1.9 cm Left Ovary: 3.4 x 2.4 x 1.7 cm 1. Uterus: Anteverted Heterogeneous, possible small fibroid left body= 0.7 x 0.5 x 0.7 cm 2. Endometrium: wnl 3. Right Ovary: wnl 4. Left Ovary: wnl Spectral, color doppler imaging shows good flow within the ovaries; there is no evidence for ovaria n torsion. 5. Bilateral Adnexa: wnl 6. Posterior cul-de-sac: wnl Unable to visualize possible abscess within right adnexa, ovary and area of fallopian tube appeared wnl IMPRESSION: 1. Ovarian follicles. No suspicious changes to suggest right ovarian abscess identified. 2. Small uterine fibroid
--- NOTE | 2020-08-31 09:19 | P.HPIM ---
History of Present Illness 35-year-old the came in with the complaints of severe right lower quadrant abdominal pain nausea vomiting. Patient multiple ovarian cysts in the past which were removed in 2014. Patient is on OC pills. Patient denied any abnormal or vaginal discharge denied any fevers. The any history of STDs. Patient had a CAT scan of the abdomen which showed 5.9-4.2 cm right adnexal mass patient is undergoing a pelvic ultrasound now concern for tubo-ovarian abscesses because of which patient was started on Unasyn and doxycycline, DONATION SPECIALIST evaluated the patient. I'll leave the decision of chlamydia and gonorrhea testing to DONATION SPECIALIST services. I believe these were not ordered as patient was already started on antibiotics patient is presently on Unasyn and doxycycline. Review of Systems REVIEW OF SYSTEMS: CONSTITUTIONAL: No fever, no malaise, no fatigue. HEENT: No recent visual problems or hearing problems. Denied any sore throat. CARDIOVASCULAR: No chest pain, orthopnea, PND, no palpitations, no syncope. PULMONARY: No shortness of breath, no cough, no hemoptysis. GASTROINTESTINAL: As mentioned in HPI NEUROLOGICAL: No headaches, no weakness, no numbness. HEMATOLOGICAL: Denies any bleeding or petechiae. GENITOURINARY: Denies any burning micturition, frequency, or urgency. MUSCULOSKELETAL/RHEUMATOLOGICAL: Denies any joint pain, swelling, or any muscle pain. ENDOCRINE: Denies any polyuria or polydipsia. The rest of the 14-point review of systems is negative. 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 History of Any Multi-Drug Resistant Organisms: None Reported Past Surgical History: Appendectomy Additional Past Surgical History / Comment(s): OVARIAN CYST SURGERY Past Anesthesia/Blood Transfusion Reactions: No Reported Reaction Past Psychological History: No Psychological Hx Reported Additional Psychological History / Comment(s): undiagnosed anxiety Smoking Status: Never smoker Past Alcohol Use History: Occasional Past Drug Use History: None Reported - Past Family History Mother Family Medical History: No Reported History Father Family Medical History: No Reported History Medications and Allergies Home Medications Medication Instructions Recorded Confirmed Type Cetirizine HCl [Zyrtec] 10 mg PO DAILY 02/16/15 08/30/20 History Lysine [l-Lysine] 500 mg PO DAILY 04/11/17 08/30/20 History Ergocalciferol (Vitamin D2) 50 mg PO DAILY 08/30/20 08/30/20 History [Vitamin D2 (2000 Iu)] Norethindrone-E.estradiol-Iron 1 tab PO DAILY 08/30/20 08/30/20 History [Junel Fe 1 mg-20 Mcg Tablet] Ondansetron Odt [Zofran ODT] 4 mg PO Q8H PRN 08/30/20 08/30/20 History Allergies Allergy/AdvReac Type Severity Reaction Status Date / Time metoclopramide HCl AdvReac Intermediate Unknown Verified 08/30/20 21:30 [From [facility]] Physical Exam Vitals: Vital Signs Temp Pulse Pulse Resp BP BP Pulse Ox 08/31/20 05:33 98.3 F 76 121/71 97 08/31/20 01:52 98.1 F 86 18 119/71 95 08/30/20 22:33 98.0 F 99 18 116/63 97 08/30/20 20:18 85 18 126/72 99 08/30/20 16:58 98.7 F 74 16 129/74 97 Intake and Output 08/30/20 08/31/20 08/31/20 22:59 06:59 14:59 Other: # Voids 1 Weight 72.575 kg 72.575 kg PHYSICAL EXAMINATION: GENERAL: The patient is alert and oriented x3, not in any acute distress. Well developed, well nourished. HEENT: Pupils are round and equally reacting to light. EOMI. No scleral icterus. No conjunctival pallor. Normocephalic, atraumatic. No pharyngeal erythema. No thyromegaly. CARDIOVASCULAR: S1 and S2 present. No murmurs, rubs, or gallops. PULMONARY: Chest is clear to auscultation, no wheezing or crackles. ABDOMEN: Soft, I'll right lower quadrant abdominal tenderness nondistended, normoactive bowel sounds. No palpable organomegaly. MUSCULOSKELETAL: No joint swelling or deformity. EXTREMITIES: No cyanosis, clubbing, or pedal edema. NEUROLOGICAL: Gross neurological examination did not reveal any focal deficits. SKIN: No rashes. Results CBC & Chem 7: 08/31/20 04:29 08/30/20 19:19 Labs: Abnormal Lab Results - Last 24 Hours (Table) 08/30/20 08/30/20 08/30/20 Range/Units 19:19 19:19 19:19 WBC 19.9 H (3.8-10.6) k/uL Neutrophils # 18.2 H (1.3-7.7) k/uL Carbon Dioxide 19 L (22-30) mmol/L Glucose 119 H (74-99) mg/dL Plasma Lactic Acid Jonah 5.2 H* (0.7-2.0) mmol/L Calcium 10.3 H (8.4-10.2) mg/dL Total Protein 8.5 H (6.3-8.2) g/dL Albumin 5.1 H (3.5-5.0) g/dL Lipase 16 L (23-300) U/L Urine Protein (Negative) Urine Ketones (Negative) Urine Blood (Negative) Urine Mucus (None) /hpf SARS-CoV-2 (PCR) (Not Detectd) 08/30/20 08/30/20 08/30/20 Range/Units 19:36 21:58 22:12 WBC (3.8-10.6) k/uL Neutrophils # (1.3-7.7) k/uL Carbon Dioxide (22-30) mmol/L Glucose (74-99) mg/dL Plasma Lactic Acid Jonah 3.3 H* (0.7-2.0) mmol/L Calcium (8.4-10.2) mg/dL Total Protein (6.3-8.2) g/dL Albumin (3.5-5.0) g/dL Lipase (23-300) U/L Urine Protein 1+ H (Negative) Urine Ketones 1+ H (Negative) Urine Blood Small H (Negative) Urine Mucus Moderate H (None) /hpf SARS-CoV-2 (PCR) Detected A (Not Detectd) 08/31/20 08/31/20 Range/Units 01:37 04:29 WBC 12.2 H (3.8-10.6) k/uL Neutrophils # 9.1 H (1.3-7.7) k/uL Carbon Dioxide (22-30) mmol/L Glucose (74-99) mg/dL Plasma Lactic Acid Jonah 3.0 H* (0.7-2.0) mmol/L Calcium (8.4-10.2) mg/dL Total Protein (6.3-8.2) g/dL Albumin (3.5-5.0) g/dL Lipase (23-300) U/L Urine Protein (Negative) Urine Ketones (Negative) Urine Blood (Negative) Urine Mucus (None) /hpf SARS-CoV-2 (PCR) (Not Detectd) Thrombosis Risk Factor Assmnt - Choose All That Apply Any of the Below Risk Factors Present?: Yes Each Factor Represents 1 point: Medical pt on bed rest Other Risk Factors: No Other congenital or acquired thrombophilia - If yes, enter type in comment: No Thrombosis Risk Factor Assessment Total Risk Factor Score: 1 Thrombosis Risk Factor Assessment Level: Low Risk Assessment and Plan Plan: Possible tubo-ovarian abscess: Patient will be continued on present antibiotics. IV fluids once pain improves patient will be transitioned to oral antibiotics. Lactic acidosis: Sepsis secondary to tubular an abscess. Covid 19 pneumonia patient was treated for Covid 19 about one and half month ago and the positive Covid 19 test is secondary to activated or any particles patient is probably not infected at this time. -Anion gap metabolic acidosis secondary to lactic is doses: Patient will continued on IV fluids -DVT prophylaxis early ambulation
[2020-08-31] MEDS: DOXYCYCLINE 100 MG in SODIUM CHLORIDE 0.9% 100 ML IVPB SCH ×2 (12:25→23:36)
--- NOTE | 2020-08-31 15:12 | P.GSCN ---
History of Present Illness Consult date: 08/31/20 History of present illness: CHIEF COMPLAINT: Abdominal pain HISTORY OF PRESENT ILLNESS: This is a 35-year-old female with a known past surgical history of appendectomy, ovarian cyst surgery and elective . Patient presents to the emergency room with complaints of right sided lower abdominal pain. Patient reports that pain started yesterday morning and came on suddenly. Pain continued to worsen. She was having some nausea vomiting and diarrhea. This has now improved. She had a computed tomography scan of the abdomen and pelvis with results showing abscess noted in the right lower quadrant adjacent to the region of the right adnexa measuring 5.9 x 4.2 cm. Patient also seen by BILLING CLINICIAN service and transvaginal ultrasound completed showing ovarian follicles. No suspicious changes to suggest right ovarian abscess. Small uterine fibroid. Patient denies any fever chills or sweats. Currently on antibiotics. PAST MEDICAL HISTORY: See list. PAST SURGICAL HISTORY: See list. MEDICATIONS: See list. ALLERGIES: See list. SOCIAL HISTORY: No illicit drug use. REVIEW OF SYSTEMS: CONSTITUTIONAL: Denies fever or chills. HEENT: Denies blurred vision, vision changes, or eye pain. Denies hemoptysis CARDIOVASCULAR: Denies chest pain or pressure. RESPIRATORY: No shortness of breath. GASTROINTESTINAL: See HPI for pertinent findings HEMATOLOGIC: Denies bleeding disorders. GENITOURINARY: Denies any blood in urine or increased urinary frequency. SKIN: Denies pruitis. Denies rash. PHYSICAL EXAM: VITAL SIGNS: Reviewed GENERAL: Well-developed in no acute distress. HEENT: No sclera icterus. Extraocular movements grossly intact. Moist buccal mucosa. Head is atraumatic, normocephalic. No nasal drainage. ABDOMEN: Soft. Nondistended. Tenderness right lower abdomen NEUROLOGIC: Alert and oriented. Cranial nerves II through XII grossly intact. LABORATORY DATA: WBC 12.2 hemoglobin 11.8 lactic acid 3.3 down to 1.6 LFTs normal lipase 16 COVID-19 detected. Patient reports having Covid in June. IMAGING: See above ASSESSMENT: 1. Abdominal pain with intra-abdominal abscess noted on CAT scan. 2. Prior history of laparoscopic appendectomy PLAN: -Consult interventional radiology for drainage of abdominal abscess -Patient can be started on regular diet depending on IR procedure -Continue antibiotics Thank you for this consultation Physician Satellite Installer note has been reviewed by physician. Signing provider agrees with the documented findings, assessment, and plan of care. 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 History of Any Multi-Drug Resistant Organisms: None Reported Past Surgical History: Appendectomy Additional Past Surgical History / Comment(s): OVARIAN CYST SURGERY Past Anesthesia/Blood Transfusion Reactions: No Reported Reaction Past Psychological History: No Psychological Hx Reported Additional Psychological History / Comment(s): undiagnosed anxiety Smoking Status: Never smoker Past Alcohol Use History: Occasional Past Drug Use History: None Reported - Past Family History Mother Family Medical History: No Reported History Father Family Medical History: No Reported History Medications and Allergies Home Medications Medication Instructions Recorded Confirmed Type Cetirizine HCl [Zyrtec] 10 mg PO DAILY 02/16/15 08/30/20 History Lysine [l-Lysine] 500 mg PO DAILY 04/11/17 08/30/20 History Ergocalciferol (Vitamin D2) 50 mg PO DAILY 08/30/20 08/30/20 History [Vitamin D2 (2000 Iu)] Norethindrone-E.estradiol-Iron 1 tab PO DAILY 08/30/20 08/30/20 History [Junel Fe 1 mg-20 Mcg Tablet] Ondansetron Odt [Zofran ODT] 4 mg PO Q8H PRN 08/30/20 08/30/20 History Allergies Allergy/AdvReac Type Severity Reaction Status Date / Time metoclopramide HCl AdvReac Intermediate Unknown Verified 08/30/20 21:30 [From [facility]] Surgical - Exam Vital Signs Temp Pulse Resp BP Pulse Ox 98.7 F 74 16 129/74 97 08/30/20 16:58 08/30/20 16:58 08/30/20 16:58 08/30/20 16:58 08/30/20 16:58 Results - Labs 08/31/20 04:29 08/30/20 19:19 Abnormal Lab Results - Last 24 Hours (Table) 08/30/20 08/30/20 08/30/20 Range/Units 19:19 19:19 19:19 WBC 19.9 H (3.8-10.6) k/uL Neutrophils # 18.2 H (1.3-7.7) k/uL Carbon Dioxide 19 L (22-30) mmol/L Glucose 119 H (74-99) mg/dL Plasma Lactic Acid Jonah 5.2 H* (0.7-2.0) mmol/L Calcium 10.3 H (8.4-10.2) mg/dL Total Protein 8.5 H (6.3-8.2) g/dL Albumin 5.1 H (3.5-5.0) g/dL Lipase 16 L (23-300) U/L Urine Protein (Negative) Urine Ketones (Negative) Urine Blood (Negative) Urine Mucus (None) /hpf SARS-CoV-2 (PCR) (Not Detectd) 08/30/20 08/30/20 08/30/20 Range/Units 19:36 21:58 22:12 WBC (3.8-10.6) k/uL Neutrophils # (1.3-7.7) k/uL Carbon Dioxide (22-30) mmol/L Glucose (74-99) mg/dL Plasma Lactic Acid Jonah 3.3 H* (0.7-2.0) mmol/L Calcium (8.4-10.2) mg/dL Total Protein (6.3-8.2) g/dL Albumin (3.5-5.0) g/dL Lipase (23-300) U/L Urine Protein 1+ H (Negative) Urine Ketones 1+ H (Negative) Urine Blood Small H (Negative) Urine Mucus Moderate H (None) /hpf SARS-CoV-2 (PCR) Detected A (Not Detectd) 08/31/20 08/31/20 Range/Units 01:37 04:29 WBC 12.2 H (3.8-10.6) k/uL Neutrophils # 9.1 H (1.3-7.7) k/uL Carbon Dioxide (22-30) mmol/L Glucose (74-99) mg/dL Plasma Lactic Acid Jonah 3.0 H* (0.7-2.0) mmol/L Calcium (8.4-10.2) mg/dL Total Protein (6.3-8.2) g/dL Albumin (3.5-5.0) g/dL Lipase (23-300) U/L Urine Protein (Negative) Urine Ketones (Negative) Urine Blood (Negative) Urine Mucus (None) /hpf SARS-CoV-2 (PCR) (Not Detectd) Diabetes panel 08/30/20 Range/Units 19:19 Sodium 138 (137-145) mmol/L Potassium 4.4 (3.5-5.1) mmol/L Chloride 101 (98-107) mmol/L Carbon Dioxide 19 L (22-30) mmol/L BUN 13 (7-17) mg/dL Creatinine 0.58 (0.52-1.04) mg/dL Glucose 119 H (74-99) mg/dL Calcium 10.3 H (8.4-10.2) mg/dL AST 36 (14-36) U/L ALT 21 (4-34) U/L Alkaline Phosphatase 51 (38-126) U/L Total Protein 8.5 H (6.3-8.2) g/dL Albumin 5.1 H (3.5-5.0) g/dL Calcium panel 08/30/20 Range/Units 19:19 Calcium 10.3 H (8.4-10.2) mg/dL Albumin 5.1 H (3.5-5.0) g/dL Pituitary panel 08/30/20 Range/Units 19:19 Sodium 138 (137-145) mmol/L Potassium 4.4 (3.5-5.1) mmol/L Chloride 101 (98-107) mmol/L Carbon Dioxide 19 L (22-30) mmol/L BUN 13 (7-17) mg/dL Creatinine 0.58 (0.52-1.04) mg/dL Glucose 119 H (74-99) mg/dL Calcium 10.3 H (8.4-10.2) mg/dL Adrenal panel 08/30/20 Range/Units 19:19 Sodium 138 (137-145) mmol/L Potassium 4.4 (3.5-5.1) mmol/L Chloride 101 (98-107) mmol/L Carbon Dioxide 19 L (22-30) mmol/L BUN 13 (7-17) mg/dL Creatinine 0.58 (0.52-1.04) mg/dL Glucose 119 H (74-99) mg/dL Calcium 10.3 H (8.4-10.2) mg/dL Total Bilirubin 0.6 (0.2-1.3) mg/dL AST 36 (14-36) U/L ALT 21 (4-34) U/L Alkaline Phosphatase 51 (38-126) U/L Total Protein 8.5 H (6.3-8.2) g/dL Albumin 5.1 H (3.5-5.0) g/dL
[2020-08-31] MEDS ORDERED: IOPAMIDOL CONTRAST (ORAL USE) VIAL PO PRN (16:25)
--- NOTE | 2020-08-31 18:44 | CT ---
EXAMINATION TYPE: CT abdomen pelvis wo con DATE OF EXAM: 08/31/2020 COMPARISON: 08/30/2020. HISTORY: Abdominal pain. CT DLP: 629.4 mGycm Automated exposure control for dose reduction was used. TECHNIQUE: Helical acquisition of images was performed from the lung bases through the pelvis. FINDINGS: LUNG BASES: No significant abnormality is appreciated. LIVER/GB: Hepatomegaly without acute abnormality. Gallbladder vicarious contrast excretion. PANCREAS: No significant abnormality is seen. SPLEEN: No significant abnormality is seen. ADRENALS: No significant abnormality is seen. KIDNEYS: No significant abnormality is seen. FREE AIR: No free air is visualized RETROPERITONEAL ADENOPATHY: None visualized REPRODUCTIVE ORGANS: No significant abnormality is seen URINARY BLADDER: No significant abnormality is seen. PELVIC ADENOPATHY: None visualized. OSSEOUS STRUCTURES: No significant abnormality is seen. BOWEL: No bowel obstruction, free air or fluid. Appendix is not visualized. No evidence of acute wesley endicitis. OTHER: None. IMPRESSION: Gallbladder vicarious contrast excretion, can be seen in the setting of renal failure. OTHERWISE NO ACUTE ABNORMALITY. INTERVAL RESOLUTION OF PREVIOUS RIGHT PELVIC FLUID COLLECTION.
[2020-09-01] MEDS: AMPICILLIN-SULBACTAM 3 GM in SODIUM CHLORIDE 0.9% 100 ML IVPB SCH ×2 (05:22→15:47)
[2020-09-01 06:40] LABS: Basophils # (A) 0.1 k/uL (0-0.2); Basophils % (A) 1 %; Eosinophils # (A) 0.3 k/uL (0-0.7); Eosinophils % (A) 4 %; HCT 34.8 % (34.0-46.0); HGB 11.9 gm/dL (11.4-16.0); Lymphocytes # (A) 2.3 k/uL (1.0-4.8); Lymphocytes % (A) 32 %; MCH 30.2 pg (25.0-35.0); MCHC 34.3 g/dL (31.0-37.0); MCV 88.2 fL (80.0-100.0); Mean Platelet Volume 6.9; Monocytes # (A) 0.4 k/uL (0-1.0); Monocytes % (A) 5 %; Neutrophils % (A) 55 %; Platelet Count 266 k/uL (150-450); RBC 3.94 m/uL (3.80-5.40); RDW 13.3 % (11.5-15.5); WBC 7.2 k/uL (3.8-10.6)
--- NOTE | 2020-09-01 06:43 | P.PN ---
Progress Note - Text Progress Note Date: 09/01/20 Patient is seen and examined. Transvaginal ultrasound yesterday did not show any evidence of tubo-ovarian abscess. The adnexa looked fine. Patient's white count yesterday was found to be 12.2 and she continues to be afebrile. CBC today is pending. Patient apparently was seen by general surgery and they recommended attempt at interventional radiology to drain the abscess however when the patient went for this procedure and repeat CAT scan imaging showed the abscess had resolved. It is my impression that this most likely was not an abscess. Certainly there is no evidence of a tubo-ovarian abscess. If patient remains afebrile, she is cleared for discharge from a gynecologic standpoint. To be cautious most likely I would discharge her home on a 7 day course of doxycycline and follow up with her primary TEST ANALYST Dr. Conn.
[2020-09-01 07:12] LABS: African American GFR (CKD) >90 (>60 ml/min/1.73 sqM); Anion Gap 6 mmol/L; Blood Urea Nitrogen 8 mg/dL (7-17); Calcium 8.4 mg/dL (8.4-10.2); Carbon Dioxide 24 mmol/L (22-30); Chloride 108 mmol/L (98-107); Glucose 91 mg/dL (74-99); Non-African American GFR(CKD) >90 (>60 ml/min/1.73 sqM); Potassium 4.4 mmol/L (3.5-5.1); Sodium 138 mmol/L (137-145)
[2020-09-01] MEDS: LORATADINE 10 MG TAB PO SCH (07:15)
[2020-09-01] MEDS: CHOLECALCIFEROL 25 MCG (1000 IU) TABLET PO SCH (07:15)
[2020-09-01 09:49] VITALS: RESP 16
--- NOTE | 2020-09-01 10:14 | P.DS ---
Providers Date of admission: 08/30/20 23:00 Attending physician: Александр Monet MD Consults: 08/30/20 22:14 Consult Physician Routine Consulting Provider: Lj Beal Consult Reason/Comments: Intra-abdominal abscess Do you want consulting provider notified?: Yes Consult Physician Routine Consulting Provider: Gabriel Funk Consult Reason/Comments: Intraabdominal abscess Do you want consulting provider notified?: Already Contacted Primary care physician: Stated None Hospital Course: 35-year-old the came in with the complaints of severe right lower quadrant abdominal pain nausea vomiting. Patient multiple ovarian cysts in the past which were removed in 2014. Patient is on OC pills. Patient denied any abnormal or vaginal discharge denied any fevers. The any history of STDs. Patient had a CAT scan of the abdomen which showed 5.9-4.2 cm right adnexal mass patient is undergoing a pelvic ultrasound now concern for tubo-ovarian abscesses because of which patient was started on Unasyn and doxycycline, GARBAGE TRUCK DISPATCHER evaluated the patient. I'll leave the decision of chlamydia and gonorrhea testing to GARBAGE TRUCK DISPATCHER services. I believe these were not ordered as patient was already started on antibiotics patient is presently on Unasyn and doxycycline. 09/01/[address] guided drainage for the abscess was ordered by general surgery although the repeat CT the abscesses that was found on initial CT was not present. Patient probably doesn't have to go to an abscess may have had a cyst which had a spontaneous drainage. Patient had history of ovarian cysts in the past her abdominal pain completely resolved at this time patient will not require any antibiotics patient will be discharged today PHYSICAL EXAMINATION: GENERAL: The patient is alert and oriented x3, not in any acute distress. Well developed, well nourished. HEENT: Pupils are round and equally reacting to light. EOMI. No scleral icterus. No conjunctival pallor. Normocephalic, atraumatic. No pharyngeal erythema. No thyromegaly. CARDIOVASCULAR: S1 and S2 present. No murmurs, rubs, or gallops. PULMONARY: Chest is clear to auscultation, no wheezing or crackles. ABDOMEN: Soft, I'll right lower quadrant abdominal tenderness nondistended, normoactive bowel sounds. No palpable organomegaly. MUSCULOSKELETAL: No joint swelling or deformity. EXTREMITIES: No cyanosis, clubbing, or pedal edema. NEUROLOGICAL: Gross neurological examination did not reveal any focal deficits. SKIN: No rashes. Assessment and Plan Plan: Ovarian cyst: Resolved no evidence of tubo-ovarian abscess at this time patient will be discharged to follow up with her mechanical service technician and patient will defer to primary care physician did Lactic acidosis: Sepsis ruled out probably secondary to intravascular depletion lactic acidosis resolved Covid 19 pneumonia patient was treated for Covid 19 about one and half month ago and the positive Covid 19 test is secondary to activated RNA particles patient is probably not infected at this time. -Anion gap metabolic acidosis secondary to lactic is doses: Patient will continued on IV fluids Patient Condition at Discharge: Serious Plan - Discharge Summary Discharge Rx Participant: No New Discharge Prescriptions: Continue Cetirizine HCl [Zyrtec] 10 mg PO DAILY Lysine [l-Lysine] 500 mg PO DAILY Norethindrone-E.estradiol-Iron [Junel Fe 1 mg-20 Mcg Tablet] 1 tab PO DAILY Ergocalciferol (Vitamin D2) [Vitamin D2 (2000 Iu)] 50 mg PO DAILY Ondansetron Odt [Zofran ODT] 4 mg PO Q8H PRN PRN Reason: Nausea And Vomiting Discharge Medication List Cetirizine HCl [Zyrtec] 10 mg PO DAILY 02/16/15 [History] Lysine [l-Lysine] 500 mg PO DAILY 04/11/17 [History] Ergocalciferol (Vitamin D2) [Vitamin D2 (2000 Iu)] 50 mg PO DAILY 08/30/20 [History] Norethindrone-E.estradiol-Iron [Junel Fe 1 mg-20 Mcg Tablet] 1 tab PO DAILY 08/30/20 [History] Ondansetron Odt [Zofran ODT] 4 mg PO Q8H PRN 08/30/20 [History] Follow up Appointment(s)/Referral(s): Jeanette Conn MD [REFERRING] - 1 Week Asif Urias MD [STAFF PHYSICIAN] - 3 Days Discharge Disposition: HOME SELF-CARE
[2020-09-01 13:23] VITALS: BP 107/69; PULSE 71; TEMP 98.7
--- NOTE | 2020-09-01 14:53 | P.PN ---
<Shasha Sykes - Last Filed: 09/01/20 14:49> Subjective Progress Note Date: 09/01/20 CHIEF COMPLAINT: Abdominal pain HISTORY OF PRESENT ILLNESS: This is a 35-year-old female with a known prior history of appendectomy and prior ovarian cysts that have ruptured and have also required surgery. Patient's right lower quadrant abdominal pain has improved today. She was feeling very nauseous this morning patient reevaluated this afternoon and this has also improved. She is tolerating regular diet. Has had no vomiting. She did have 1 loose bowel movement. Her white count has normalized from 12.2-7.2. Her repeat computed tomography scan of the abdomen and pelvis with oral contrast shows no acute abnormality. And full resolution of previous right pelvic fluid collection. She is afebrile. WBC 7.2 hemoglobin 11.9 PHYSICAL EXAM: VITAL SIGNS: Reviewed. GENERAL: Well-developed in no acute distress. HEENT: No sclera icterus. Extraocular movements grossly intact. Moist buccal mucosa. Head is atraumatic, normocephalic. ABDOMEN: Soft. Nondistended. Minimal tenderness right lower quadrant NEUROLOGIC: Alert and oriented. Cranial nerves II through XII grossly intact. ASSESSMENT: 1. Right lower quadrant abdominal pain likely due to an ovarian cyst that ruptured. Repeat CAT scan shows resolution of pelvic fluid. PLAN: -Patient can be discharged from surgical standpoint -Antibiotics per PUBLIC EMPLOYMENT MEDIATOR service Physician Senior Software Project Manager note has been reviewed by physician. Signing provider agrees with the documented findings, assessment, and plan of care. Objective - Vital Signs Vital signs: Vital Signs Temp 98.7 F 09/01/20 13:22 Pulse 71 09/01/20 13:22 Resp 16 09/01/20 13:22 BP 107/69 09/01/20 13:22 Pulse Ox 97 09/01/20 13:22 Intake & Output 08/31/20 09/01/20 09/01/20 18:59 06:59 18:59 Other: Voiding Method Toilet Toilet # Voids 2 2 - Labs CBC & Chem 7: 09/01/20 05:53 09/01/20 05:53 Labs: Abnormal Lab Results - Last 24 Hours (Table) 09/01/20 Range/Units 05:53 Chloride 108 H (98-107) mmol/L Microbiology - Last 24 Hours (Table) 08/30/20 21:58 Blood Culture - Preliminary Blood No Growth after 24 hours 08/30/20 21:58 Blood Culture - Preliminary Blood No Growth after 24 hours <Cheo Falcon - Last Filed: 09/02/20 07:38> Subjective As above. Repeat CAT scan shows no definite abscess. May discharge. Objective - Vital Signs Vital signs: Vital Signs Temp 98.7 F 09/01/20 13:22 Pulse 71 09/01/20 13:22 Resp 16 09/01/20 13:22 BP 107/69 09/01/20 13:22 Pulse Ox 97 09/01/20 13:22 Intake & Output 09/01/20 09/02/20 09/02/20 18:59 06:59 18:59 Other: Voiding Method Toilet - Labs CBC & Chem 7: 09/01/20 05:53 09/01/20 05:53 Labs: Microbiology - Last 24 Hours (Table) 08/30/20 21:58 Blood Culture - Preliminary Blood No Growth after 48 hours 08/30/20 21:58 Blood Culture - Preliminary Blood No Growth after 48 hours
[2020-09-01] MEDS: SODIUM CHLORIDE 0.9% 1,000 ML IV SCH (15:48)
[2020-09-01] MEDS: DOXYCYCLINE 100 MG in SODIUM CHLORIDE 0.9% 100 ML IVPB SCH (15:48)
== END 2020-09-01 16:51 | disposition home or self-care (01) ==
LOC: EC 16:57 → 5NMEDONC 23:00 → INTOOBSV 23:00 → 4SSUR 08-31 00:01 → UNDODISIN 09-01 16:51
PROVIDERS: ADMIT Internal Medicine; ATTEND Internal Medicine
DX: K65.1 Peritoneal abscess (principal); N83.209 Unspecified ovarian cyst, unspecified side; D25.9 Leiomyoma of uterus, unspecified; E87.2 Acidosis; B00.9 Herpesviral infection, unspecified; U07.1 COVID-19; F43.9 Reaction to severe stress, unspecified; G40.909 Epilepsy, unspecified, not intractable, without status epilepticus; G80.9 Cerebral palsy, unspecified; F81.9 Developmental disorder of scholastic skills, unspecified; G83.9 Paralytic syndrome, unspecified; Z79.899 Other long term (current) drug therapy; Z79.3 Long term (current) use of hormonal contraceptives; Z88.8 Allergy status to other drugs, medicaments and biological substances; Z90.49 Acquired absence of other specified parts of digestive tract; Z86.16 Personal history of COVID-19
CPT/HCPCS: 96376; 96366 ×3; 96368; 96361; 96365; 96367; 96375; 99285; 36415; 80053; 80048; 83605 ×2; 83690; 85025 ×3; 81001; 81025; 87040; 87636; 76830; 74176; 74177; G0378 ×3; J2270 ×2; J2405 ×2; J0295 ×3; Q9967; 96374

== ENCOUNTER 2023-05-25 12:03 | Emergency (ER) | payer OTHER ==
--- NOTE | 2023-05-25 13:19 | ED ---
ENT HPI - General Chief complaint: ENT Stated complaint: pain in neck/head Time Seen by Provider: 05/25/23 12:57 Source: patient, RN notes reviewed Mode of arrival: ambulatory Limitations: no limitations - History of Present Illness Initial comments: 38-year-old female presents emergency department with chief complaint of right- sided neck pain. Patient states is bothersome for several days. She states that she initially just thought she was can have a sore throat states that she was eating and drinking states that she felt the fluid went on the wrong way in which she became very lightheaded and passed out. She has been complain of a headache she was seen in urgent care sent over here for further evaluation no reports of fever she states he is extremely tired, fatigued. - Related Data Home Medications Medication Instructions Recorded Confirmed Cetirizine HCl [Zyrtec] 10 mg PO DAILY 02/16/15 05/25/23 Cholecalciferol [Vitamin D3 (25 25 mcg PO DAILY 05/25/23 05/25/23 Mcg = 1000 Iu)] Cranberry Fruit Extract [Cranberry] 500 mg PO DAILY 05/25/23 05/25/23 Fenofibrate Nanocrystallized 145 mg PO DAILY 05/25/23 05/25/23 [Fenofibrate] Prebiotic+Probiotic 1 tab PO DAILY 05/25/23 05/25/23 Previous Rx's Medication Instructions Recorded Amoxic-Pot Clav 875-125Mg 1 tab PO Q12HR #20 tab 05/25/23 [Augmentin 875-125] Allergies Allergy/AdvReac Type Severity Reaction Status Date / Time metoclopramide HCl AdvReac Intermediate Unknown Verified 05/25/23 13:51 [From [facility]] Review of Systems ROS Statement: Those systems with pertinent positive or pertinent negative responses have been documented in the HPI. ROS Other: All systems not noted in ROS Statement are negative. 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 History of Any Multi-Drug Resistant Organisms: None Reported Past Surgical History: Appendectomy Additional Past Surgical History / Comment(s): OVARIAN CYST SURGERY Past Anesthesia/Blood Transfusion Reactions: No Reported Reaction Past Psychological History: No Psychological Hx Reported Smoking Status: Never smoker Past Alcohol Use History: Occasional Past Drug Use History: None Reported - Past Family History Mother Family Medical History: No Reported History Father Family Medical History: No Reported History General Exam Limitations: no limitations General appearance: alert, in no apparent distress Head exam: Present: atraumatic, normocephalic, normal inspection Eye exam: Present: normal appearance, PERRL, EOMI. Absent: scleral icterus, conjunctival injection, periorbital swelling ENT exam: Present: normal oropharynx, mucous membranes moist. Absent: normal exam Neck exam: Present: normal inspection, tenderness, full ROM. Absent: meningismus, lymphadenopathy Respiratory exam: Present: normal lung sounds bilaterally. Absent: respiratory distress, wheezes, rales, rhonchi, stridor Cardiovascular Exam: Present: regular rate, normal rhythm, normal heart sounds. Absent: systolic murmur, diastolic murmur, rubs, gallop, clicks GI/Abdominal exam: Present: soft, normal bowel sounds. Absent: distended, tenderness, guarding, rebound, rigid Neurological exam: Present: alert, oriented X3, CN II-XII intact, reflexes normal. Absent: motor sensory deficit Course Vital Signs 05/25/23 12:49 Temperature 98.5 F Pulse Rate 63 Respiratory 20 Rate Blood Pressure 131/78 O2 Sat by Pulse 97 Oximetry Medical Decision Making - Medical Decision Making Was pt. sent in by a medical professional or institution (GLENNY Bartlett, GAS TECHNICIAN, urgent care, hospital, or half-way...) When possible be specific @ -[Urgent care Did you speak to anyone other than the patient for history (EMS, parent, family, police, friend...)? What history was obtained from this source @ -No Did you review nursing and triage notes (agree or disagree)? Why? @ -I reviewed and agree with nursing and triage notes Were old charts reviewed (outside hosp., previous admission, EMS record, old EKG, old radiological studies, urgent care reports/EKG's, half-way records)? Report findings @ -No old charts were reviewed Differential Diagnosis (chest pain, altered mental status, abdominal pain women, abdominal pain men, vaginal bleeding, weakness, fever, dyspnea, syncope, headache, dizziness, GI bleed, back pain, seizure, CVA, palpatations, mental health, musculoskeletal)? @ -[[place], strep pharyngitis, lymphadenopathy, sialadentitis EKG interpreted by me (3pts min.). @ -none X-rays interpreted by me (1pt min.). @ -None done CT interpreted by me (1pt min.). @ -CT brain shows no acute process U/S interpreted by me (1pt. min.). @ -None done What testing was considered but not performed or refused? (CT, X-rays, U/S, labs)? Why? @ -None What meds were considered but not given or refused? Why? @ -None Did you discuss the management of the patient with other professionals (professionals i.e. , PA, GAS TECHNICIAN, lab, RT, psych nurse, social media editor, wet milling wheel operator, teacher, precinct commanding officer, case worker)? Give summary @ -No Was smoking cessation discussed for >3mins.? @ -No Was critical care preformed (if so, how long)? @ -No Were there social determinants of health that impacted care today? How? (Homelessness, low income, unemployed, alcoholism, drug addiction, transportation, low edu. Level, literacy, decrease access to med. care, prison, rehab)? @ -No Was there de-escalation of care discussed even if they declined (Discuss DNR or withdrawal of care, Hospice)? DNR status @ -No What co-morbidities impacted this encounter? (DM, HTN, Smoking, COPD, CAD, Cancer, CVA, ARF, Chemo, Hep., AIDS, mental health diagnosis, sleep apnea, morbid obesity)? @ -None Was patient admitted / discharged? Hospital course, mention meds given and route, prescriptions, significant lab abnormalities, going to OR and other pertinent info. @ -[Discharge patient presented from urgent care for further evaluation. Patient has right-sided neck swelling appears to be related to severed gland. Laboratory studies unremarkable. CT brain performed which is negative after shared head injury after syncopal episode. Patient is discharged in stable condition return pressure discussed. Undiagnosed new problem with uncertain prognosis? @ -No Drug Therapy requiring intensive monitoring for toxicity (Heparin, Nitro, Insulin, Cardizem)? @ -No Were any procedures done? @ -No Diagnosis/symptom? @ -[sialadentitis Acute, or Chronic, or Acute on Chronic? @ -Acute Uncomplicated (without systemic symptoms) or Complicated (systemic symptoms)? @ -Uncomplicated Side effects of treatment? @ -[No Exacerbation, Progression, or Severe Exacerbation? @ -No Poses a threat to life or bodily function? How? (Chest pain, [place], SD, pneumonia, PE, COPD, DKA, ARF, appy, cholecystitis, CVA, Diverticulitis, Homicidal, Suicidal, threat to staff... and all critical care pts) @ -No - Lab Data Result diagrams: 05/25/23 13:04 05/25/23 13:04 Lab Results 05/25/23 05/25/23 05/25/23 Range/Units 13:04 13:04 13:04 WBC 10.5 (3.8-10.6) k/uL RBC 4.54 (3.80-5.40) m/uL Hgb 14.1 (11.4-16.0) gm/dL Hct 39.7 (34.0-46.0) % MCV 87.6 (80.0-100.0) fL MCH 31.1 (25.0-35.0) pg MCHC 35.5 (31.0-37.0) g/dL RDW 12.1 (11.5-15.5) % Plt Count 375 (150-450) k/uL MPV 7.5 Neutrophils % 67 % Lymphocytes % 22 % Monocytes % 5 % Eosinophils % 4 % Basophils % 1 % Neutrophils # 7.0 (1.3-7.7) k/uL Lymphocytes # 2.3 (1.0-4.8) k/uL Monocytes # 0.5 (0-1.0) k/uL Eosinophils # 0.4 (0-0.7) k/uL Basophils # 0.1 (0-0.2) k/uL Sodium 138 (137-145) mmol/L Potassium 4.5 (3.5-5.1) mmol/L Chloride 107 (98-107) mmol/L Carbon Dioxide 22 (22-30) mmol/L Anion Gap 9 mmol/L BUN 13 (7-17) mg/dL Creatinine 0.58 (0.52-1.04) mg/dL Est GFR (CKD-EPI)AfAm >90 (>60 ml/min/1.73 sqM) Est GFR (CKD-EPI)NonAf >90 (>60 ml/min/1.73 sqM) Glucose 108 H (74-99) mg/dL Calcium 9.8 (8.4-10.2) mg/dL Total Bilirubin 0.5 (0.2-1.3) mg/dL AST 30 (14-36) U/L ALT 27 (4-34) U/L Alkaline Phosphatase 59 (38-126) U/L Total Protein 7.8 (6.3-8.2) g/dL Albumin 4.7 (3.5-5.0) g/dL Amylase 58 (30-110) U/L Heterophile Antibody Negative (Negative) Group A Strep (PCR) (Not Detectd) 05/25/23 Range/Units 13:04 WBC (3.8-10.6) k/uL RBC (3.80-5.40) m/uL Hgb (11.4-16.0) gm/dL Hct (34.0-46.0) % MCV (80.0-100.0) fL MCH (25.0-35.0) pg MCHC (31.0-37.0) g/dL RDW (11.5-15.5) % Plt Count (150-450) k/uL MPV Neutrophils % % Lymphocytes % % Monocytes % % Eosinophils % % Basophils % % Neutrophils # (1.3-7.7) k/uL Lymphocytes # (1.0-4.8) k/uL Monocytes # (0-1.0) k/uL Eosinophils # (0-0.7) k/uL Basophils # (0-0.2) k/uL Sodium (137-145) mmol/L Potassium (3.5-5.1) mmol/L Chloride (98-107) mmol/L Carbon Dioxide (22-30) mmol/L Anion Gap mmol/L BUN (7-17) mg/dL Creatinine (0.52-1.04) mg/dL Est GFR (CKD-EPI)AfAm (>60 ml/min/1.73 sqM) Est GFR (CKD-EPI)NonAf (>60 ml/min/1.73 sqM) Glucose (74-99) mg/dL Calcium (8.4-10.2) mg/dL Total Bilirubin (0.2-1.3) mg/dL AST (14-36) U/L ALT (4-34) U/L Alkaline Phosphatase (38-126) U/L Total Protein (6.3-8.2) g/dL Albumin (3.5-5.0) g/dL Amylase (30-110) U/L Heterophile Antibody (Negative) Group A Strep (PCR) NOT DETECTED (Not Detectd) Disposition Clinical Impression: Sialadenitis, Closed head injury Disposition: HOME SELF-CARE Condition: Stable Instructions (If sedation given, give patient instructions): Sialoadenitis (ED) Additional Instructions: Please return to the Emergency Department if symptoms worsen or any other concerns. Prescriptions: Amoxic-Pot Clav 875-125Mg [Augmentin 875-125] 1 tab PO Q12HR #20 tab Is patient prescribed a controlled substance at d/c from ED?: No Referrals: Haroldo Segura MD [Primary Care Provider] - 1-2 days Lai Regan MD [STAFF PHYSICIAN] - 1-2 days Time of Disposition: 14:25
[2023-05-25 13:21] LABS: Basophils # (A) 0.1 k/uL (0-0.2); Basophils % (A) 1 %; Eosinophils # (A) 0.4 k/uL (0-0.7); Eosinophils % (A) 4 %; HCT 39.7 % (34.0-46.0); HGB 14.1 gm/dL (11.4-16.0); Lymphocytes # (A) 2.3 k/uL (1.0-4.8); Lymphocytes % (A) 22 %; MCH 31.1 pg (25.0-35.0); MCHC 35.5 g/dL (31.0-37.0); MCV 87.6 fL (80.0-100.0); Mean Platelet Volume 7.5; Monocytes # (A) 0.5 k/uL (0-1.0); Monocytes % (A) 5 %; Neutrophils % (A) 67 %; Platelet Count 375 k/uL (150-450); RBC 4.54 m/uL (3.80-5.40); RDW 12.1 % (11.5-15.5); WBC 10.5 k/uL (3.8-10.6)
[2023-05-25 13:32] LABS: ALT 27 U/L (4-34); AST 30 U/L (14-36); African American GFR (CKD) >90 (>60 ml/min/1.73 sqM); Albumin 4.7 g/dL (3.5-5.0); Alkaline Phosphatase 59 U/L (38-126); Amylase 58 U/L (30-110); Anion Gap 9 mmol/L; Blood Urea Nitrogen 13 mg/dL (7-17); Calcium 9.8 mg/dL (8.4-10.2); Carbon Dioxide 22 mmol/L (22-30); Chloride 107 mmol/L (98-107); Glucose 108 mg/dL (74-99); Non-African American GFR(CKD) >90 (>60 ml/min/1.73 sqM); Potassium 4.5 mmol/L (3.5-5.1); Sodium 138 mmol/L (137-145); Total Bilirubin 0.5 mg/dL (0.2-1.3); Total Protein 7.8 g/dL (6.3-8.2)
--- NOTE | 2023-05-25 14:17 | CT ---
EXAMINATION TYPE: CT brain wo con DATE OF EXAM: 05/25/2023 COMPARISON: MRI brain dated 06/26/2017 HISTORY: SYNCOPE/TRAUMA CT DLP: 1095.4 mGycm. Automated Exposure Control for Dose Reduction was Utilized. TECHNIQUE: CT scan of the head is performed without contrast. FINDINGS: The ventricles, basal cisterns and sulci over convexities are within normal limits and there is no ma ss effect or shift of midline structures. 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 It is stable compared to the prior MRI of the brain from 06/26/19 18. There is no mass effect or shift of midline structures. There is no acute intra or extra-axial hemorrhage. Posterior fossa is grossly normal. The intraorbital contents appear normal and symmetric. Visualized paranasal sinuses and mastoid air cells are well aerated. The calvarium is intact. IMPRESSION: No acute bleed or mass effect.
[2023-05-25 14:52] VITALS: BP 128/72; PULSE 65; RESP 18; TEMP 98.9
== END 2023-05-25 14:34 | disposition home or self-care (01) ==
LOC: EC 12:03
DX: S09.90XA Unspecified injury of head, initial encounter (principal); K11.20 Sialoadenitis, unspecified; Z88.8 Allergy status to other drugs, medicaments and biological substances; X58.XXXA Exposure to other specified factors, initial encounter
CPT/HCPCS: 36415; 70450; 80053; 82150; 85025; 86308; 87651; 99284